=== PATIENT | male | born 1985 | race Caucasian/White ===

== ENCOUNTER 2019-12-14 15:24 | Emergency (ER) | payer MEDICAID ==
[~2019-12-14] VITALS: Ht 165.1 cm; Wt 72.6 kg
[2019-12-14 15:31] VITALS: BP 123/97
--- NOTE | 2019-12-14 15:40 | NUR ---
pt ambulated to bed 05 with steady gait
--- NOTE | 2019-12-14 15:43 | NUR ---
34 y/o male from home c/o lt sided numbness and tingling with sternal chest pain x 1 wk. pt states he has felt this before when he was having anxiety attack. states episodes begins when he tries to relax. minor blurred vision to lt eye intermittently. denies dizziness. rr even and unlabored, does not appear in distress. vss medhx: anxiety
--- NOTE | 2019-12-14 15:55 | NUR ---
dr dalal examining pt
[2019-12-14 16:04] VITALS: BP 123/97
--- NOTE | 2019-12-14 16:04 | NUR ---
Patient discharged with v/s stable. Written and verbal after care instructions given and explained. Patient alert, oriented and verbalized understanding of instructions. Ambulatory with steady gait. All questions addressed prior to discharge. ID band removed. Patient advised to follow up with PMD. Rx of motrin, prilosec, and atarax given. Patient educated on indication of medication including possible reaction and side effects. Opportunity to ask questions provided and answered.
== END 2019-12-14 16:04 | disposition home or self-care (01) ==
LOC: MED 15:24
DX: F41.9 Anxiety disorder, unspecified (principal); Z98.890 Other specified postprocedural states
CPT/HCPCS: 99283

== ENCOUNTER 2019-12-14 21:17 | Emergency (ER) | payer MEDICAID ==
[~2019-12-14] VITALS: Ht 165.1 cm; Wt 71.8 kg
[2019-12-14 21:20] VITALS: BP 123/75
--- NOTE | 2019-12-14 21:33 | NUR ---
PT TAKEN TO BED 5
--- NOTE | 2019-12-14 21:47 | NUR ---
34m PT C/O CHEST PAIN X 1WEEK, WAS IN ER EARLIER TODAY AND SEEN AND D/C BY ODALIS.OBSERVED SUBSTERNAL CHEST PAIN DESCRIPTION. PT STATES THAT HE CANNOT SLEEP THROUGHOUT THE NIGHT. DENIES LOC. DENIES N/V/D [facility] MEDICAL HX: ANXIETY NEGATIVE FOR COVID SCREENING.
--- NOTE | 2019-12-14 21:47 | NUR ---
URINE SENT TO LAB
--- NOTE | 2019-12-14 21:56 | NUR ---
DR ATWOOD AT BEDSIDE EVALUATING PT
[2019-12-14] MEDS ORDERED: LORazepam 1 MG TAB PO ONE (22:05)
--- NOTE | 2019-12-14 22:09 | NUR ---
PT MEDICATED WITH ATIVAN. NO FURTHER NEEDS AT THIS TIME. VSS. BED LOWEST AND LOCKED, RAILS UP X1
[2019-12-14 22:10] LABS: BARBITURATE, URINE NEGATIVE ng/ml (NEG <=200); BENZODIAZEPINE, URINE NEGATIVE ng/mL (NEG <=200); CANNABINOID, URINE NEGATIVE ng/mL (NEG <=50); COCAINE, URINE NEGATIVE ng/mL (NEG <=300); OPIATE, URINE NEGATIVE ng/mL (NEG <=2000); PHENCYCLIDINE SCREEN,URINE NEGATIVE ng/mL (NEG <=25)
--- NOTE | 2019-12-14 23:42 | NUR ---
PT ASLEEP ON BED. NO CP, SOB OR ANY PAIN IN ORIGIN.
--- NOTE | 2019-12-14 23:59 | NUR ---
Patient discharged with v/s stable. Written and verbal after care instructions given and explained. Patient alert, oriented and verbalized understanding of instructions. Ambulatory with steady gait. All questions addressed prior to discharge. ID band removed. Patient advised to follow up with PMD. Rx Ativan 0.5 mg tablet po at hs as needed given. Patient educated on indication of medication including possible reaction and side effects. Opportunity to ask questions provided and answered. Pt walks in steady gait, no CP, SOB or any pain. Pt talk in full sentences and d/c.
[2019-12-15 00:03] VITALS: BP 125/81
== END 2019-12-14 23:59 | disposition home or self-care (01) ==
LOC: MED 21:17
DX: R07.9 Chest pain, unspecified (principal); F41.9 Anxiety disorder, unspecified
CPT/HCPCS: 80305; 93005; 99284; 99285